=== PATIENT | female | born 1965 | race African-American/Black ===

== ENCOUNTER 2017-11-22 18:47 | Emergency (ER) | payer SELFPAY ==
[~2017-11-22] VITALS: Ht 157.5 cm; Wt 93.0 kg
--- NOTE | 2017-11-22 19:21 | Emergency Room Report ---
History of Present Illness General Chief Complaint: Abdominal Pain Source: Patient Present Illness HPI 52-year-old female presents to the emergency department with 2 complaints. The first complaint is 10/10 in severity burning intermittent epigastric pain with associated nausea and radiation up into her throat. Patient states she has not actually vomited she has had some loose stools. 2 weeks. Patient also is complaining of dysuria times several days. Patient denies hematuria, urinary frequency, fevers, chills, abdominal tenderness she reports some bloating sensation. Patient states she does not know whether or not her symptoms are exacerbated after eating. Patient states she has had decreased appetite. Pt. reports acid in her throat and that her symptoms are notable at night when attempting to sleep. pt. reports she likes spicy foods however she has cut back significantly. Pt. reports she took milk of magnesia which she believes may have caused her diarrhea. She denies night sweats or weight loss. Denies blood in the stool or melena. Denies recent travel or ill contacts.Denies CP, Palpitations, LOC, AMS, dizziness, Changes in Vision, Sensation, paresthesias, or a sudden severe headache. Allergies: Coded Allergies: No Known Allergies (Unverified , 11/22/17) Patient History Past Medical History: see triage record Past Surgical History: none Pertinent Family History: none Last Menstrual Period: 7 months ago Reviewed Nursing Documentation: PMH: Agreed; PSxH: Agreed Nursing Documentation-PMH Past Medical History: No Stated History Review of Systems All Other Systems: negative except mentioned in HPI Physical Exam Vital Signs Date Time Temp Pulse Resp B/P (MAP) Pulse Ox O2 Delivery O2 Flow Rate FiO2 11/22/17 18:52 98.0 82 18 109/68 99 Room Air 98.1 Sp02 EP Interpretation: reviewed, normal General Appearance: no apparent distress, alert, GCS 15, non-toxic Head: normocephalic, atraumatic ENT: hearing grossly normal, normal pharynx, normal voice Neck: full range of motion Respiratory: lungs clear, normal breath sounds, speaking full sentences Cardiovascular #1: regular rate, rhythm Gastrointestinal: normal bowel sounds, non tender, soft, no peritonitis, non- distended, no guarding Rectal: deferred Genitourinary: normal inspection, no CVA tenderness Musculoskeletal: back normal, gait/station normal, normal range of motion Neurologic: alert, oriented x3, responsive, motor strength/tone normal, sensory intact, normal gait, speech normal, grossly normal Psychiatric: judgement/insight normal Skin: normal color, no rash, warm/dry, well hydrated Lymphatic: no adenopathy Medical Decision Making PA Attestation Dr. Akins is my supervising Physician whom patient management has been discussed with. Diagnostic Impression: Primary Impression: Abdominal pain Qualified Codes: R10.13 - Epigastric pain Additional Impression: Dysuria ER Course 52-year-old female presents to the emergency department with 2 complaints. The first complaint is 10/10 in severity burning intermittent epigastric pain with associated nausea and radiation up into her throat. Patient states she has not actually vomited she has had some loose stools. 2 weeks. Patient also is complaining of dysuria and vaginal burning discomfort x several days. Patient denies discharge, recent unprotected intercourse, hx of STI, hematuria, urinary frequency, fevers, chills, abdominal tenderness she reports some bloating sensation. Patient states she does not know whether or not her symptoms are exacerbated after eating. Patient states she has had decreased appetite. Pt. reports acid in her throat and that her symptoms are notable at night when attempting to sleep. pt. reports she likes spicy foods however she has cut back significantly. Pt. reports she took milk of magnesia which she believes may have caused her diarrhea. Pt reports on occasion she will have yeast infection with use of new soaps and she states her vaginal symptoms are similar in character to symptoms she had in the past. She denies night sweats or weight loss. Denies blood in the stool or melena. Denies recent travel or ill contacts.Denies CP, Palpitations, LOC, AMS, dizziness, Changes in Vision, Sensation, paresthesias, or a sudden severe headache. Ddx considered but are not limited to Diverticulitis, acute appy, diarrhea,UC, PUD, GE, pancreatitis, gallstone, GERD, Vaginitis, UTI. Vital signs: are WNL, pt. is afebrile H&PE are most consistent with possible GERD and UTI. PE does not suggest acute abdomen at this time. Pt. is NAD, non-toxic in appearance. ORDERS: -UA: unremarkable occasional bacteria, however more squamous cells and no appreciable elevation of inflammatory markers. ED INTERVENTIONS: -GI Cocktail -Diflucan -- upon re-evaluation after oral medications pt. reports her symptoms have completely subsided, and feels ready to go home. -d/w pt. GI specialist follow up. gave ED return precautions for worsening or new symptoms. DISCHARGE: At this time pt. is stable for d/c to home. Will provide printed patient care instructions, and any necessary prescriptions. Care plan and follow up instructions have been discussed with the patient prior to discharge. Labs Test 11/22/17 18:57 Urine Color Nadine Urine Appearance Clear Urine pH 5 (4.5-8.0) Urine Specific [place] 1.025 (1.005-1.035) Urine Protein 1+ (NEGATIVE) Urine Glucose (UA) Negative (NEGATIVE) Urine Ketones Negative (NEGATIVE) Urine Occult Blood Negative (NEGATIVE) Urine Nitrite Negative (NEGATIVE) Urine Bilirubin Negative (NEGATIVE) Urine Ictotest Negative Urine Urobilinogen Normal MG/DL (0.0-1.0) Urine Leukocyte Esterase 1+ (NEGATIVE) Urine RBC 0-2 /HPF (0 - 2) Urine WBC 0-2 /HPF (0 - 2) Urine Squamous Epithelial Cells Few /LPF (NONE/OCC) Urine Bacteria Occasional /HPF (NONE) Urine Mucus Many /LPF (NONE/OCC) Last Vital Signs Date Time Temp Pulse Resp B/P (MAP) Pulse Ox O2 Delivery O2 Flow Rate FiO2 11/22/17 18:52 98.0 82 18 109/68 99 Room Air 98.1 Disposition: HOME, SELF-CARE Condition: Stable Scripts Fluconazole (FLUCONAZOLE) 100 Mg Tablet 100 MG ORAL DAILY, #3 TAB 0 Refills Prov: Ange Arriaga 11/22/17 Lidocaine HCl 2% Viscous (Lidocaine HCl 2% Viscous) 100 Ml Solution 10 ML ORAL QID, #120 ML Prov: Ange Arriaga 11/22/17 Ranitidine Hcl* (ZANTAC*) 150 Mg Tablet 150 MG ORAL TWICE A DAY, #20 TAB Prov: Ange Arriaga 11/22/17 Patient Instructions: Abdominal Pain, Adult, Gastritis, Adult, Gastroesophageal Reflux Disease, Adult Additional Instructions: Take medications as directed. Follow up with a GI SPECIALIST in 3-5 days, even if your symptoms have resolved. --Please review list of primary care clinics, if you do not already have a primary care provider Return sooner to ED if new symptoms occur, or current symptoms become worse. - Please note that this Emergency Department Report was dictated using [employer] technology software, occasionally this can lead to erroneous entry secondary to interpretation by the dictation equipment. Ange Arriaga Nov 22, 2017 19:21
[2017-11-22] MEDS ORDERED: Mylanta II UD 30ml ORAL ONE (19:30)
[2017-11-22] MEDS ORDERED: Lidocaine 2% Visc 15ml soln ORAL ONE (19:30)
[2017-11-22] MEDS ORDERED: Dicyclomine HCl 10mg/5ml oral soln ORAL ONE (19:30)
[2017-11-22 19:35] VITALS: BP 109/68
[2017-11-22 19:39] LABS: APPEARANCE,URINE CLEAR; BILIRUBIN, URINE NEGATIVE (NEGATIVE); COLOR,URINE AMBER; GLUCOSE, URINE (UA) NEGATIVE (NEGATIVE); KETONES,URINE NEGATIVE (NEGATIVE); LEUKOCYTE ESTERASE ,URINE 1+ (NEGATIVE); NITRITE,URINE NEGATIVE (NEGATIVE); PH,URINE 5 (4.5-8.0); PROTEIN,URINE 1+ (NEGATIVE); UROBILINOGEN,URINE NORMAL MG/DL (0.0-1.0)
[2017-11-22] MEDS ORDERED: Phenazopyridine 200mg tab ORAL ONE (19:45)
[2017-11-22] MEDS ORDERED: ZANTAC150 MG ORAL (20:51)
[2017-11-22] MEDS ORDERED: FLUCONAZOLE100 MG ORAL (20:51)
[2017-11-22] MEDS ORDERED: LIDOCAINE VISC100 ML ORAL (20:51)
[2017-11-22] MEDS ORDERED: Fluconazole 100mg tab ORAL ONE (21:00)
[2017-11-22 21:10] VITALS: BP 117/70
== END 2017-11-22 21:10 | disposition home or self-care (01) ==
LOC: EMR 19:49
DX: R10.13 Epigastric pain (principal); R30.0 Dysuria
CPT/HCPCS: 81003; 99284

== ENCOUNTER 2019-02-27 14:49 | Emergency (ER) | payer OTHER ==
[~2019-02-27] VITALS: Ht 157.5 cm; Wt 90.7 kg
[~2019-02-27 14:49] MED LIST: FLUCONAZOLE100 MG ORAL; LIDOCAINE VISC100 ML ORAL; ZANTAC150 MG ORAL
[2019-02-27 14:53] VITALS: BP 124/80
[2019-02-27] MEDS ORDERED: NKM (14:57)
--- NOTE | 2019-02-27 15:33 | NUR ---
ED Nurse Note: Pt. AAOx4. Ambulatory. c/o 'Q-tip in the right ear' x 2 hrs; c/o pain, reports no drainage.
--- NOTE | 2019-02-27 15:42 | Emergency Room Report ---
History of Present Illness General Chief Complaint: Foreign Body Source: Patient Present Illness HPI 53 YO Female presents to the ED c/o 01/27 in severity right ear pain x2 hours with retained cotton from Q-tip. She denies d/c, bleeding, fevers, chills or loss of hearing. No aggravating or relieving factors at this time. Allergies: Coded Allergies: No Known Allergies (Unverified , 11/22/17) Patient History Past Medical History: see triage record Past Surgical History: none Pertinent Family History: none Reviewed Nursing Documentation: PMH: Agreed; PSxH: Agreed Nursing Documentation-PMH Past Medical History: No Stated History Review of Systems All Other Systems: negative except mentioned in HPI Physical Exam Vital Signs Date Time Temp Pulse Resp B/P (MAP) Pulse Ox O2 Delivery O2 Flow Rate FiO2 02/27/19 14:53 97.5 19 124/80 98 Room Air 02/27/19 14:53 82 Sp02 EP Interpretation: reviewed, normal General Appearance: no apparent distress, alert, GCS 15, non-toxic Head: normocephalic, atraumatic Eyes: bilateral eye normal inspection, bilateral eye PERRL ENT: hearing grossly normal, normal voice, other - retained cotton tip of a q- tip in the right ear. Respiratory: lungs clear, normal breath sounds, speaking full sentences Cardiovascular #1: regular rate, rhythm Musculoskeletal: gait/station normal, normal range of motion Neurologic: alert, oriented x3, responsive, motor strength/tone normal, sensory intact, speech normal, grossly normal Psychiatric: judgement/insight normal Lymphatic: no adenopathy Procedures Additional Procedure Procedure Narrative * ----PROCEDURE: -Verbal consent for FB removal was obtained. - Single attempt with alligator forcep was made to remove foreign body and was successful. Pt. tolerated well, there were no complications. Medical Decision Making PA Attestation Dr. Titus is my supervising Physician whom patient management has been discussed with. Diagnostic Impression: Primary Impression: Ear foreign body Qualified Codes: T16.1XXA - Foreign body in right ear, initial encounter ER Course Pt. presents to the ED c/o 01/27 in severity right ear pain x2 hours with retained cotton from Q-tip. She denies d/c, bleeding, fevers, chills or loss of hearing. No aggravating or relieving factors at this time. Ddx considered but are not limited to OM, OE, mastoiditis, TM perforation, FB Vital signs: are WNL, pt. is afebrile H&PE are most consistent with foreign body of the right ear ORDERS: none required at this time, the diagnosis is clinical -OTOSCOPY: obvious round Fb in the right ear. no evidence of infection or trauma to the external canal. ED INTERVENTIONS: Single attempt with Alligator Forceps was made to remove foreign body and was successful. DISCHARGE: At this time pt. is stable for d/c to home. Will provide printed patient care instructions, and any necessary prescriptions. Care plan and follow up instructions have been discussed with the patient prior to discharge. Last Vital Signs Date Time Temp Pulse Resp B/P (MAP) Pulse Ox O2 Delivery O2 Flow Rate FiO2 02/27/19 14:53 97.5 82 19 124/80 (95) 98 Room Air Status: improved Disposition: HOME, SELF-CARE Condition: Stable Patient Instructions: Ear Foreign Body Additional Instructions: Take medications as directed. Follow up with a Primary Care Provider in 3-5 days, even if your symptoms have resolved. --Please review list of primary care clinics, if you do not already have a primary care provider Return sooner to ED if new symptoms occur, or current symptoms become worse. - Please note that this Emergency Department Report was dictated using [employer] technology software, occasionally this can lead to erroneous entry secondary to interpretation by the dictation equipment. Ange Arriaga Feb 27, 2019 15:42
[2019-02-27 15:52] VITALS: BP 122/67
--- NOTE | 2019-02-27 15:52 | NUR ---
ER DISCHARGE NOTE: Patient is cleared to be discharged per PA, pt is aox4, on room air, with stable vital signs. pt was given dc and prescription instructions, pt was able to verbalize understanding, pt id band removed. pt is able to ambulate with steady gait. pt took all belongings.
== END 2019-02-27 15:52 | disposition home or self-care (01) ==
LOC: EMR 15:30
DX: T16.1XXA Foreign body in right ear, initial encounter (principal); X58.XXXA Exposure to other specified factors, initial encounter; Y92.9 Unspecified place or not applicable
CPT/HCPCS: 99282